=== PATIENT | male | born 1975 | race Caucasian/White ===

== ENCOUNTER 2021-07-09 01:53 | Emergency (ER) | payer OTHER ==
[2021-07-09] MEDS ORDERED: ACET/COD 300 MG/30 MG STARTER PACK 6 TAB BTL PO STA (02:32)
[2021-07-09] MEDS ORDERED: KETOROLAC 15 MG/ML 1 ML VIAL IM STA (02:32)
--- NOTE | 2021-07-09 03:12 | XR ---
EXAMINATION TYPE: XR humerus RT DATE OF EXAM: 07/09/2021 COMPARISON: NONE HISTORY: Pain TECHNIQUE: 2 views FINDINGS: I see no fracture nor dislocation. Glenohumeral joint is intact. Elbow joint is intact. IMPRESSION: Negative right humerus exam. No fracture seen..
--- NOTE | 2021-07-09 03:23 | ED ---
Extremity Problem HPI - General Chief complaint: Extremity Problem,Nontraumatic Stated complaint: Right Arm Injury Time Seen by Provider: 07/09/21 02:01 Source: patient Mode of arrival: ambulatory - History of Present Illness Initial comments: 46 year-old male patient presents to the emergency department for evaluation of right arm pain. Patient states the pain is on the inside upper arm. States at rest it does not hurt but when he raises his right arm it causes the pain. Patient denies any known injury. Denies swelling, redness, fever, or chills. Denies history of DVT. States he did have left bicep tendon injury a couple of weeks ago. States he is using the right arm more but nothing strenous. States pain started as mild a couple of days ago and has been getting worse. He did take some ibuprofen earlier in the day. No other medications. - Related Data Previous Rx's Medication Instructions Recorded Acetaminophen-Codeine 300-30mg 1 tab PO Q6H PRN #12 tablet 07/09/21 [Tylenol #3] Allergies Allergy/AdvReac Type Severity Reaction Status Date / Time clindamycin Allergy Rash/Hives Verified 07/09/21 01:59 Penicillins Allergy Rash/Hives Verified 07/09/21 01:59 Review of Systems ROS Statement: Those systems with pertinent positive or pertinent negative responses have been documented in the HPI. ROS Other: All systems not noted in ROS Statement are negative. Past Medical History Past Medical History: No Reported History History of Any Multi-Drug Resistant Organisms: None Reported Additional Past Surgical History / Comment(s): vasectomy, septum Past Psychological History: No Psychological Hx Reported Smoking Status: Never smoker Past Alcohol Use History: None Reported Past Drug Use History: None Reported General Exam General appearance: alert, in no apparent distress, other (This is a well- developed, well-nourished adult male patient in no acute distress) Respiratory exam: Present: normal lung sounds bilaterally. Absent: respiratory distress, wheezes, rales, rhonchi, stridor Cardiovascular Exam: Present: regular rate, normal rhythm, normal heart sounds. Absent: systolic murmur, diastolic murmur, rubs, gallop, clicks GI/Abdominal exam: Present: soft, normal bowel sounds. Absent: distended, tenderness, guarding, rebound, rigid Extremities exam: Present: normal inspection, full ROM, normal capillary refill, other (Skin to the right arm is pink, warm, dry. Cap refill less than 3 seconds. Radial pulses are 2+. There is no evidence for redness, swelling, or tenderness over the arm. No right axillary lymphadenopathy.). Absent: tenderness, pedal edema, joint swelling, calf tenderness Neurological exam: Present: alert, oriented X3, CN II-XII intact Psychiatric exam: Present: normal affect, normal mood Skin exam: Present: warm, dry, intact, normal color. Absent: rash Course Vital Signs 07/09/21 07/09/21 01:55 03:45 Temperature 98.2 F 97 F L Pulse Rate 76 71 Respiratory 19 20 Rate Blood Pressure 162/99 139/89 O2 Sat by Pulse 96 98 Oximetry Medical Decision Making - Medical Decision Making 46-year-old male patient presented to the emergency department today for evaluation of nontraumatic right arm pain. Physical examination was unremarkable. Neurovascular status was intact. He did have full range of motion to the right shoulder though did cause significant increase in pain with abduction of the arm. There is no evidence for swelling, lymphadenopathy, or erythema. X-ray of the right humerus was negative. We did discuss possibility of muscle injury versus tendinitis. Given left bicep tendon injury recently I did instruct him to discuss possibility of connective tissue disorders with his physician. He is instructed to be reevaluated immediately if his symptoms change or if he develops any redness, swelling, or fever. He is given pain medication. Return parameters were discussed in detail. He verbalizes understanding and agrees with this plan. Case discussed with my attending Dr. Baires. - Radiology Data Radiology results: report reviewed, image reviewed 2 views of the right humerus are obtained. Report was reviewed in its entirety. Impression by Dr. Garcia shows negative right humerus exam. No fracture seen. Disposition Clinical Impression: Right arm pain Disposition: HOME SELF-CARE Condition: Good Instructions (If sedation given, give patient instructions): Arm Pain (ED) Additional Instructions: Take pain medication as directed. Perform gentle range of motion exercises throughout the day. Follow up with your primary care physician for recheck in 1- 2 days. Return for any new, worsening, or concerning symptoms. Prescriptions: Acetaminophen-Codeine 300-30mg [Tylenol #3] 1 tab PO Q6H PRN #12 tablet PRN Reason: Pain Is patient prescribed a controlled substance at d/c from ED?: No Referrals: Austen Colon MD [Primary Care Provider] - 1-2 days Time of Disposition: 03:23
[2021-07-09 03:47] VITALS: BP 139/89; PULSE 71; RESP 20; TEMP 97
== END 2021-07-09 03:46 | disposition home or self-care (01) ==
LOC: EC 01:53
DX: M79.621 Pain in right upper arm (principal)
CPT/HCPCS: 96372; 99283